=== PATIENT | female | born 1970 | race Caucasian/White ===

== ENCOUNTER 2016-09-27 10:27 | Outpatient (CLI) ==
[2012-09-24 22:51] VITALS: TEMP 97.4
[2015-12-29 18:05] VITALS: BMI 48.4
[2016-09-27 10:41] LABS: BASOPHILS # (AUTO) 0.1 K/uL (0-0.2); EOSINOPHILS # (AUTO) 0.1 K/ul (0.0-0.7); EOSINOPHILS % (AUTO) 1.8 % (0.0-7.0); HEMATOCRIT 40.6 % (37.0-47.0); HEMOGLOBIN 13.6 g/dl (12.0-16.0); IMMATURE GRANULOCYTE % (AUTO) 0.3 % (0.0-5.0); LYMPHOCYTES # (AUTO) 2.9 K/uL (0.60-3.4); LYMPHOCYTES % (AUTO) 46.8 (10.0-50.0); MEAN CORPUSCULAR HEMOGLOBIN 29.2 pg (27.0-31.0); MEAN CORPUSCULAR HGB CONC 33.5 (31.8-35.4); MEAN CORPUSCULAR VOLUME 87.3 fl (81.0-99.0); MONOCYTES # (AUTO) 0.6 K/uL (0.4-2.0); MONOCYTES % (AUTO) 9.2 (0-10); NEUTROPHILS # (AUTO) 2.5 K/ul (2.0-6.9); NEUTROPHILS % (AUTO) 40.9; PLATELET COUNT 253 10^3/uL (140-440); RED BLOOD COUNT 4.65 10^6/ul (4.20-5.40); WHITE BLOOD COUNT 6.09 K/ul (4.6-10.2)
[2016-09-27 11:22] LABS: ALBUMIN 3.8 g/dL (3.4-5.0); ALBUMIN/GLOBULIN RATIO 1.19; ANION GAP 12.3; BILIRUBIN,TOTAL 0.47 mg/dL (0.00-1.20); BUN/CREATININE RATIO 19.04; CALCIUM 9.3 mg/dL (8.2-10.2); CHOL/HDL RATIO 3.5 (4.5-5.5); CREATININE 0.84 mg/dL (0.60-1.30); FERRITIN 57.12 ng/mL (4.63-204.00); POTASSIUM 4.3 mmol/L (3.5-5.10)
== END 2016-09-27 10:28 | disposition home or self-care (01) ==
LOC: LAB 10:27
PROVIDERS: ATTEND Family Medicine
DX: E78.2 Mixed hyperlipidemia (principal); R53.83 Other fatigue; D68.9 Coagulation defect, unspecified
CPT/HCPCS: 36415; 80053; 80061; 82607; 82728; 83540; 84443; 85025

== ENCOUNTER 2016-10-22 08:51 | Outpatient (CLI) ==
[2012-09-24 22:51] VITALS: TEMP 97.4
[2015-12-29 18:05] VITALS: BMI 48.4
[2016-10-22 09:51] LABS: BILIRUBIN,URINE Negative (NEGATIVE); KETONES,URINE Negative (NEGATIVE); LEUKOCYTE ESTERASE ,URINE Trace (NEGATIVE); NITRITE,URINE Negative (NEGATIVE); PROTEIN,URINE Negative (NEGATIVE); URINE, BLOOD Negative (NEGATIVE)
[2016-10-22 09:58] LABS: ADD URINE MICROSCOPIC YES
[2016-10-22 10:00] LABS: BACTERIA,URINE TRACE (NOT PRESENT)
== END 2016-10-22 08:52 | disposition home or self-care (01) ==
LOC: LAB 08:51
PROVIDERS: ATTEND Family Medicine
DX: R30.0 Dysuria (principal)
CPT/HCPCS: 36415; 81001; 87086

== ENCOUNTER 2016-12-06 14:56 | Outpatient (CLI) ==
[2012-09-24 22:51] VITALS: TEMP 97.4
[2015-12-29 18:05] VITALS: BMI 48.4
== END 2016-12-06 14:57 | disposition home or self-care (01) ==
LOC: CAR 14:56
PROVIDERS: ATTEND Psychiatry & Neurology Sleep Medicine
DX: G47.33 Obstructive sleep apnea (adult) (pediatric) (principal)
CPT/HCPCS: 95811

== ENCOUNTER 2017-01-18 08:50 | Outpatient (CLI) ==
[2012-09-24 22:51] VITALS: TEMP 97.4
[2015-12-29 18:05] VITALS: BMI 48.4
--- NOTE | 2017-01-18 13:47 | MRI ---
EXAM: MRI of the left ankle/hind-foot without contrast COMPARISON: None available. HISTORY: Cystic lesion at the level of the left ankle. TECHNIQUE: Multiplanar noncontrast MR images of the left ankle/hind-foot were acquired using a 1.2 T esla magnet. FINDINGS: No recent radiographs of the left ankle are available for comparison and radiographic patito elation is recommended. There is subcutaneous edema and ill-defined subcutaneous fluid throughout the distal calf and ankle w hich is most pronounced medially. There is a gel capsule indicating the site of clinical concern wit hin the posteromedial aspect of the distal calf just above the tibiotalar joint at that level. There is a heterogeneous region of T2 hyperintense signal with lobulated margins measuring 1.8 x 1.1 x 0.8 cm within the posteromedial subcutaneous tissues at/just proximal to that level extending up to 3.8 c m above the level of the tibiotalar joint which may represent evolving hematoma/seroma/abscess though a soft tissue mass is not entirely excluded. Mild degenerative spurring at the tibiotalar, talonavicular and subtalar joints without evidence of a n acute fracture or osteomyelitis. The talar dome is intact. Small tibiotalar and posterior subtala r joint effusions with fluid extending to a prominent posterior joint recesses at those levels. There is marked tendinosis along the distal 5.2 cm of the Achilles tendon with linear intrasubstance fissuring/partial thickness tearing involving the distal 3.5 cm of the Achilles with more focal parti al-thickness/intrasubstance tear at the level of the insertional fibers measuring 3 mm in diameter. No full-thickness tear or tendon retraction. Achilles peritendinitis. 10 mm retrocalcaneal spur. 1 0 mm plantar calcaneal spur with inflammation. Scarring of the proximal portion of the plantar fasci a without fascial rupture. Diffuse muscle atrophy. The anterior tibial, extensor hallicus longus and extensor digitorum tendons are intact. Posterior t ibial tendinosis and tenosynovitis. The flexor digitorum and flexor hallicus longus tendons are inta ct. Mild peroneus longus/brevis tendinosis and tenosynovitis. The anterior and posterior tibiofibular ligaments are intact without abnormal widening of the syndesm osis. Scarring related to a chronic sprain of the anterior talofibular ligament with spurring of the fibular attachment. Sprains with scarring of the calcaneofibular, posterior talofibular and deltoid ligaments. IMPRESSION: 1. Subcutaneous edema and ill-defined subcutaneous fluid throughout the distal calf and ankle which i s most pronounced medially/posteromedially. More focal 1.8 x 1.1 x 0.8 cm T2 hyperintense focus with in the posteromedial subcutaneous tissues at the site of clinical concern just above the level of the ankle which may represent complex evolving hematoma/seroma/abscess or less likely a solid soft tissu e mass. Correlation with postcontrast MRI is recommended. 2. No acute osseous abnormality. Mild degenerative changes. Tibiotalar and subtalar joint effusion s, nonspecific. 3. Marked distal Achilles tendinosis with partial-thickness tear of the tendon without a full-thickn ess tear or tendon retraction as described. Achilles peritendinitis and enthesopathy. 4. Acute on chronic changes of plantar fasciitis without fascial rupture. 5. Mild posterior tibial tendinosis and tenosynovitis. Mild peroneus longus/brevis tendinosis and t enosynovitis. 6. Chronic sprains with scarring of the medial and lateral supporting ligaments of the ankle as desc ribed.
== END 2017-01-18 08:51 | disposition home or self-care (01) ==
LOC: RAD 08:50
PROVIDERS: ATTEND Family Medicine
DX: M67.472 Ganglion, left ankle and foot (principal)

== ENCOUNTER 2017-04-05 14:42 | Emergency (ER) ==
[2017-04-05 14:48] VITALS: BP 164/102; TEMP 97.8; BMI 53.9
--- NOTE | 2017-04-05 14:55 | ED.PDOC ---
General ED Provider: Dr. ADALBERTO PEREYRA JR Chief Complaint: Earache Stated Complaint: left ear pain. states is tender and sore and feels like it has a bump on the outside [ End ]1 day 97.8 59 20 97% 164/102 10 Time Seen by Physician: 14:53 Mode of Arrival: Walk-In Information Source: Patient Exam Limitations: No limitations Primary Care Provider: MOLLY JOHNSON Nursing and Triage Documentation Reviewed and Agree: No Reviewed sepsis parameters & appropriate labs ordered?: No System Inflammatory Response Syndrome: Not Applicable Sepsis Protocol: For patient's 13 years and over: Temp is 96.8 and below OR 101 and greater Pulse >90 BPM Resp >20/minute Acutely Altered Mental Status Are patient's symptoms suggestive of a new infection, such as: -Pneumonia -Skin, Soft Tissue -Endocarditis -UTI -Bone, Joint Infection -Implantable Device -Acute Abdominal Infection -Wound Infection -Meningitis -Blood Stream Catheter Infection -Unknown System Inflammatory Response Syndrome: Not Applicable Review of Systems - Review Of Systems Constitutional: Reports: No symptoms Eyes: Reports: No symptoms Ears, Nose, Mouth, Throat: Reports: Ear pain Respiratory: Reports: No symptoms Cardiac: Reports: No symptoms GI: Reports: No symptoms : Reports: No symptoms Musculoskeletal: Reports: No symptoms Skin: Reports: No symptoms Neurological: Reports: No symptoms Endocrine: Reports: No symptoms Hematologic/Lymphatic: Reports: No symptoms All Other Systems: Reviewed and Negative Past Medical History - Past Medical History Previously Healthy: Yes Endocrine: Reports: None Cardiovascular: Reports: None Respiratory: Reports: None Hematological: Reports: None Gastrointestinal: Reports: None Genitourinary: Reports: None Neuro/Psych: Reports: Anxiety Musculoskeletal: Reports: None Cancer: Reports: None Last Menstrual Period: none - Surgical History General Surgical History: Reports: Tubal ligation (tubal ligation,LEEP), Cholecystectomy, Adenoidectomy, Orthopedic (left shoulder surgury, bilat knee surgery), Unknown - Family History Family History: Reports: Unknown - Social History Smoking Status: Never smoker Hx Substance Use: No Alcohol Screening: None Physical Exam - Physical Exam Appearance: Well-appearing Pain Distress: Moderate Eyes: HENRY, EOMI, Conjunctiva clear ENT: Nose normal, Oropharynx normal, Erythema (each EAC slightly red and slight edema tender nonpalpable nodes ant and post to lef tear ear slight edema and erythema no definite cellulitis or otitis) Neck: Supple Respiratory: Airway patent, Breath sounds clear, Breath sounds equal, Respirations nonlabored Psychiatric: Affect appropriate, Mood appropriate Critical Care Note - Critical Care Note Total Time (mins): 0 Course - Course Vital Signs: Temp Pulse Resp BP Pulse Ox 04/05/17 14:42 97.8 F 59 L 20 164/102 H 97 Departure - Departure Time of Disposition: 15:03 Disposition: HOME SELF-CARE Discharge Problem: Otitis externa of left ear Qualifiers: Otitis externa type: diffuse Chronicity: acute Qualified Code(s): H60.312 - Diffuse otitis externa, left ear Instructions: Otitis Externa (ED) Condition: Good Pt referred to PMD for follow-up: Yes Additional Instructions: With Rocephin Keflex shoudl be unnecessary begin Keflex if symptoms not revolved 1-2 days if not improving recheck PMD for evaluation antibiotic until gone cortisporin ear drops for symptoms Prescriptions: Cephalexin [Keflex] 500 mg PO QID #28 capsule Neomycin/Polymyxin B/Hc Otic [Cortisporin Otic Susp] 4 drop OT Q6H #1 bottle Allergies/Adverse Reactions: Allergies meperidine [From Demerol] Adverse Reaction (Verified 04/05/17 14:47) Home Medications: Ambulatory Orders Tizanidine HCl [Zanaflex] 4 mg PO TID PRN 12/29/15 Lovastatin 40 mg PO DAILY 03/24/16 Aspirin [Aspirin EC] 325 mg PO DAILYWM 04/05/17 Cephalexin [Keflex] 500 mg PO QID #28 capsule 04/05/17 Clonazepam [Klonopin] 0.5 mg PO TID 04/05/17 Escitalopram Oxalate [Lexapro] 10 mg PO DAILY 04/05/17 Hydrocodone Bit/Acetaminophen [[place] 7.5-325] 1 each PO BID 04/05/17 Meloxicam [Mobic] 7.5 mg PO DAILYWM 04/05/17 Neomycin/Polymyxin B/Hc Otic [Cortisporin Otic Susp] 4 drop OT Q6H #1 bottle
[2017-04-05] MEDS ORDERED: ROCEPHIN IM STA (15:07)
[2017-04-05] MEDS ORDERED: LIDOCAINE HCL 1% SDV SUBCUT STA (15:07)
== END 2017-04-05 15:38 | disposition home or self-care (01) ==
LOC: ED 14:42
DX: H60.312 Diffuse otitis externa, left ear (principal)
CPT/HCPCS: 96372; 99282

== ENCOUNTER 2017-05-09 08:42 | Outpatient (CLI) ==
[2012-09-24 22:51] VITALS: TEMP 97.4
== END 2017-05-09 08:43 | disposition home or self-care (01) ==
LOC: LAB 08:42
PROVIDERS: ATTEND Family Medicine
DX: E78.5 Hyperlipidemia, unspecified (principal); E53.8 Deficiency of other specified B group vitamins
CPT/HCPCS: 36415; 80053; 80061; 82607; 84443; 85025

== ENCOUNTER 2017-05-24 15:36 | Emergency (ER) ==
[2017-05-24 15:44] VITALS: BP 117/83; TEMP 98.3; BMI 52.4
--- NOTE | 2017-05-24 17:43 | ED.PDOC ---
General ED Provider: Dr. MOLLY RAMOS Chief Complaint: Diarrhea Stated Complaint: GI illness. Diarrhea multiple episodes since yesterday. Respiratory congestion last week. Fever and chills Tuesday. Denies N-V. Sent her by her PCP. Denies Respiratory symptoms. Time Seen by Physician: 17:15 Mode of Arrival: Walk-In Information Source: Patient Exam Limitations: No limitations Primary Care Provider: MOLLY JOHNSON Referred to ED by: PCP Nursing and Triage Documentation Reviewed and Agree: Yes Reviewed sepsis parameters & appropriate labs ordered?: Yes System Inflammatory Response Syndrome: Not Applicable Sepsis Protocol: For patient's 13 years and over: Temp is 96.8 and below OR 101 and greater Pulse >90 BPM Resp >20/minute Acutely Altered Mental Status Are patient's symptoms suggestive of a new infection, such as: -Pneumonia -Skin, Soft Tissue -Endocarditis -UTI -Bone, Joint Infection -Implantable Device -Acute Abdominal Infection -Wound Infection -Meningitis -Blood Stream Catheter Infection -Unknown System Inflammatory Response Syndrome: Not Applicable GI Complaint Exam - Vomiting/Diarrhea Complaint/Exam Symptoms Are: Resolved Initial Severity: Moderate Current Severity: Mild Character of Diarrhea: Reports: Watery Aggravating: Reports: None Alleviating: Reports: None Associated Signs and Symptoms: Reports: Abdominal pain, Cramping. Denies: Dizziness, Light-headedness, Melena, Hematemesis, Fever Related History: Denies: Similar episode, Recent antibiotics Last Oral Intake: ealier today Last Bowel Movement: early today Non-GI Risk Factors: Reports: None Surgical Obstruction Risk Factors: Reports: None Related Surgical History: Reports: None Abdominal Findings: Present: None Review of Systems - Review Of Systems Constitutional: Reports: Weakness Eyes: Reports: No symptoms Ears, Nose, Mouth, Throat: Reports: No symptoms Respiratory: Reports: Other (congestion ) Cardiac: Reports: No symptoms GI: Reports: Diarrhea : Reports: No symptoms Musculoskeletal: Reports: No symptoms Skin: Reports: No symptoms Neurological: Reports: No symptoms Endocrine: Reports: No symptoms Hematologic/Lymphatic: Reports: No symptoms All Other Systems: Reviewed and Negative Past Medical History - Past Medical History Previously Healthy: Yes Endocrine: Reports: None Cardiovascular: Reports: None Respiratory: Reports: None Hematological: Reports: None Gastrointestinal: Reports: None Genitourinary: Reports: None Neuro/Psych: Reports: Anxiety Musculoskeletal: Reports: None Cancer: Reports: None Last Menstrual Period: na - Surgical History General Surgical History: Reports: Tubal ligation (tubal ligation,LEEP), Cholecystectomy, Adenoidectomy, Orthopedic (left shoulder surgury, bilat knee surgery), Unknown - Family History Family History: Reports: Unknown - Social History Smoking Status: Never smoker Hx Substance Use: No Alcohol Screening: None - Immunizations Tetanus Shot up to Date: Yes Physical Exam - Physical Exam Appearance: Well-appearing Ill-appearing: None Pain Distress: None Eyes: HENRY, EOMI, Conjunctiva clear ENT: Ears normal, Nose normal, Oropharynx normal Neck: Supple Respiratory: Airway patent, Breath sounds clear, Breath sounds equal Cardiovascular: RRR, Pulses normal, No rub, No murmur GI/: Soft, Tender (Hypogastrium midline without guarding or rebound) Musculoskeletal: Normal strength Skin: Warm Neurological: Sensation intact, Alert, Oriented Psychiatric: Affect appropriate, Mood appropriate Interpretation - Radiology Interpretation Radiology Interpretation By: ED Physician Radiology Results: Negative Re-Evaluation - Re-Evaluation Time of Re-Evaluation: 19:00 Status: Improved Vital Signs Stable: Yes Appearance: NAD Lungs: Clear Skin: Warm and Dry Neuro: Alert and Oriented X3 CV: RRR Additional Comments: Recommend Maintaining good fluid intake, Finish Tamiflu daily until finishd Critical Care Note - Critical Care Note Total Time (mins): 0 Course - Course Hematology/Chemistry: 05/24/17 17:55 05/24/17 17:55 Orders, Labs, Meds: Lab Review 05/24/17 05/24/17 05/24/17 17:45 17:55 17:55 WBC 7.97 RBC 4.70 Hgb 13.9 Hct 40.8 MCV 86.8 MCH 29.6 MCHC 34.1 RDW Coeff of Duy 11.9 Plt Count 259 Immature Gran % (Auto) 0.3 Neut % (Auto) 43.1 Lymph % (Auto) 42.7 Cuming % (Auto) 11.5 H Eos % (Auto) 1.9 Baso % (Auto) 0.5 Immature Gran # (Auto) 0.0 Neut # 3.4 Lymph # 3.4 Cuming # 0.9 Eos # 0.2 Baso # 0.0 Sodium 143 Potassium 4.3 Chloride 107 Carbon Dioxide 29 Anion Gap 11.3 BUN 13 Creatinine 0.79 Estimated GFR (MDRD) 78.00 BUN/Creatinine Ratio 16.45 Glucose 104 Calcium 9.7 Total Bilirubin 0.4 AST 18 ALT 21 Alkaline Phosphatase 61 Total Protein 7.1 Albumin 3.7 Globulin 3.4 Albumin/Globulin Ratio 1.09 Lipase 25 Influenza A (Rapid) Negative by naat Influenza B (Rapid) Negative by naat Orders Category Date Time Status CBC W/ AUTO DIFF Stat LAB 05/24/17 17:55 Completed CMP [COMPREHENSIVE METABOLIC PANEL] Stat LAB 05/24/17 17:55 Completed FLU A & B MOLECULAR [FLU A/B MOLECULAR] Stat LAB 05/24/17 17:45 Completed LIPASE Stat LAB 05/24/17 17:55 Completed Vital Signs: Temp Pulse Resp BP Pulse Ox 05/24/17 15:37 98.3 F 70 20 117/83 98 Departure - Departure Time of Disposition: 19:30 Disposition: HOME SELF-CARE Discharge Problem: Gastroenteritis Instructions: Gastroenteritis (ED) Condition: Good Pt referred to PMD for follow-up: Yes IPMP verified?: No Allergies/Adverse Reactions: Allergies meperidine [From Demerol] Adverse Reaction (Verified 04/05/17 14:47) Home Medications: Ambulatory Orders Lovastatin 40 mg PO DAILY 03/24/16 Aspirin [Aspirin EC] 325 mg PO DAILYWM 04/05/17 Clonazepam [Klonopin] 0.5 mg PO TID 04/05/17 Escitalopram Oxalate [Lexapro] 10 mg PO DAILY 04/05/17 Hydrocodone Bit/Acetaminophen [[place] 7.5-325] 1 each PO BID 04/05/17 Meloxicam [Mobic] 7.5 mg PO DAILYWM 04/05/17 Meloxicam [Mobic] 7.5 mg PO DAILY 04/13/17 Ranitidine HCl 150 mg PO BID PRN 04/13/17 Disposition Discussed With: Patient (Stay well hydrated. Finish Tamiflu;follow up pcp in 1 wk)
== END 2017-05-24 20:13 | disposition home or self-care (01) ==
LOC: ED 15:36
DX: K52.9 Noninfective gastroenteritis and colitis, unspecified (principal)
CPT/HCPCS: 36415; 80053; 83690; 85025; 87502; 99283

== ENCOUNTER 2018-02-27 08:45 | Outpatient (CLI) ==
[2012-09-24 22:51] VITALS: TEMP 97.4
== END 2018-02-27 08:46 | disposition home or self-care (01) ==
LOC: LAB 08:45
PROVIDERS: ATTEND Hospitalist
DX: E78.2 Mixed hyperlipidemia (principal); K21.9 Gastro-esophageal reflux disease without esophagitis
CPT/HCPCS: 36415; 80053; 80061; 85025

== ENCOUNTER 2018-05-07 01:30 | Outpatient (CLI) ==
[2012-09-24 22:51] VITALS: TEMP 97.4
[2018-05-07 02:11] VITALS: BMI 53.1
== END 2018-05-07 01:31 | disposition home or self-care (01) ==
LOC: AMBL 01:30
PROVIDERS: ATTEND Emergency Medicine
DX: I46.9 Cardiac arrest, cause unspecified (principal)

== ENCOUNTER 2018-05-07 01:39 | Emergency (ER) ==
[2018-05-07 02:11] VITALS: BP 0/0; TEMP 94; BMI 53.1
--- NOTE | 2018-05-07 02:52 | ED.PDOC ---
General ED Provider: Dr. MOLLY YOUNG Chief Complaint: Cardiac Arrest Stated Complaint: Cardiac Arrest. 48 y/o cauc female brought in by EMS from her residence. reportedly awakened and found her not breathing at approximately 1:30 AM. Called 911 and attempted CPR in Bed until they arrived. Once [facility] /[facility] responded and started CPR at 0133hrs. Pupils were noted to be fixed and dilated. Once put on the AED, was in asystole without a shockable rhythm. Once paramedics arrived on scene definitive medical therapy administerd per ACLS protocol including Narcan, Epinephrine X 4, Bicarb X 1. Upon arrival here CPR Continued, patient was intubated. Additional Epinephrine, Bicarb and Narcan administered. Despite all therapy we did not obtain Return of spontaneorus Respiration or cardiac activity. Patient pronounced at 0217 hrs. Her was in the Room during the attempts of resusciation and informed him and of our treatment and when she was pronounced. Stated they had went to bed at 2230 hrs and she took an oxycodone before bed. At one point he awakened and noted she was snoring and nudged her to roll over which she did. Time Seen by Physician: 02:01 Mode of Arrival: Ambulance Information Source: EMT, Police Primary Care Provider: MOLLY JOHNSON Nursing and Triage Documentation Reviewed and Agree: Yes Does patient meet sepsis criteria?: No System Inflammatory Response Syndrome: Not Applicable Sepsis Protocol: For patient's 13 years and over: Temp is 96.8 and below OR 101 and greater Pulse >90 BPM Resp >20/minute Acutely Altered Mental Status Are patient's symptoms suggestive of a new infection, such as: -Pneumonia -Skin, Soft Tissue -Endocarditis -UTI -Bone, Joint Infection -Implantable Device -Acute Abdominal Infection -Wound Infection -Meningitis -Blood Stream Catheter Infection -Unknown Cardiac Resuscitation - Cardiac Resuscitation/Physical Exam Onset/Duration: Prior to arrival Witnessed Arrest: No (Was found in cardiac arrest in bed by .) Down-time Before ALS Initiated: Unknown Airway Prehospital Findings: Reports: Patent Breathing Prehospital Findings: Reports: Apnea Circulation/Rhythm Prehospital Findings: Reports: Pulses absent, Asystole Disability/Neurological Prehospital Findings: Reports: Unresponsive Airway Prehospital Intervention: Reports: Chin lift, Oral airway Breathing Prehospital Intervention: Reports: Oxygen, Bag-valve mask Circulation/Rhythm Prehospital Intervention: Reports: Chest compressions, IV/IO placed, Epinephrine Breathing Prehospital Response: Present: Equal breath sounds Circulation/Rhythm Prehospital Response: Present: Pulses absent, Asystole Total Down Time [employer] ADVISOR: 30 minutes Airway ED Findings: Patent Breathing ED Findings: Present: Breath sounds equal Circulation/Rhythm ED Findings: Present: Pulses absent, Asystole Disability/Neurological ED Findings: Present: Unresponsive Breathing ED Intervention: Oxygen, Bag-valve mask, Intubated by ED physician Circulation/Rhythm ED Intervention: Chest compressions, Epinephrine Breathing ED Response: Equal breath sounds, Confirmed by auscultation, Confirmed by CO2 detector Circulation/Rhythm ED Response: Present: Pulses absent, Asystole Right Pupil: Fixed, Dilated Left Pupil: Fixed, Dilated Review Of Systems: Unable due to extremis EMS/Code Sheet Reviewed: Yes Patient is a DNR: No Resuscitation Successful: No Terminated At: 0217 Past Medical History - Past Medical History Previously Healthy: Yes Endocrine: Reports: None Cardiovascular: Reports: None Respiratory: Reports: PE Hematological: Reports: None Gastrointestinal: Reports: None Genitourinary: Reports: None Neuro/Psych: Reports: Anxiety Musculoskeletal: Reports: None Cancer: Reports: None Last Menstrual Period: HYSTERECTOMY - Surgical History General Surgical History: Reports: Tubal ligation (tubal ligation,LEEP), Cholecystectomy, Adenoidectomy, Orthopedic (left shoulder surgury, bilat knee surgery), Unknown - Family History Family History: Reports: Unknown - Social History Smoking Status: Never smoker Hx Substance Use: No Alcohol Screening: None - Immunizations Tetanus Shot up to Date: No (UNKNOWN) Procedures - Intubation Indication: Present: Respiratory Insufficiency Time of Intubation: 02:08 Type of Tube Used: Endotracheal Tube Size: 7.0 Cricoid Pressure Used: Yes Number of Attempts: 1 Suction Used: No Glidescope Used: No CO2 Detector Used: Yes Lung Sounds Equal Bilaterally: Yes Intubation Complications: Present: No complications Tube Inserted By: Dr Ginger Young Tube Placement Verified by X-ray: No Re-Evaluation - Re-Evaluation Time of Re-Evaluation: 02:17 Status: Unchanged CV: Other (Cardiad arrest) Critical Care Note - Critical Care Note Total Time (mins): 15 Course - Course Orders, Labs, Meds: Orders Category Date Time Status Epinephrine [Epinephrine 1 mg/10 ml Syringe] MEDS 05/07/18 03:30 Discontinued 1 mg IV ONCE STA Epinephrine [Epinephrine 1 mg/10 ml Syringe] MEDS 05/07/18 03:31 Discontinued 1 mg IV ONCE STA Epinephrine [Epinephrine 1 mg/10 ml Syringe] MEDS 05/07/18 03:32 Discontinued 1 mg IV ONCE STA Naloxone HCl [Narcan] MEDS 05/07/18 03:30 Discontinued 2 mg IVP ONCE STA Sodium Bicarb 7.5% [Sodium Bicarbonate 7.5%] MEDS 05/07/18 03:32 Discontinued 44.6 meq IVP ONCE STA Medications Discontinued Medications Generic Name Dose Route Start Last Admin Trade Name Artie PRN Reason Stop Dose Admin Epinephrine HCl 1 mg 05/07/18 03:30 05/07/18 02:06 Epinephrine 1 Mg/10 Ml Syringe IV 05/07/18 03:31 1 mg ONCE STA Administration Epinephrine HCl 1 mg 05/07/18 03:31 05/07/18 02:10 Epinephrine 1 Mg/10 Ml Syringe IV 05/07/18 03:32 1 mg ONCE STA Administration Epinephrine HCl 1 mg 05/07/18 03:32 05/07/18 02:13 Epinephrine 1 Mg/10 Ml Syringe IV 05/07/18 03:33 1 mg ONCE STA Administration Naloxone HCl 2 mg 05/07/18 03:30 05/07/18 02:07 Narcan IVP 05/07/18 03:31 2 mg ONCE STA Administration Sodium Bicarbonate 44.6 meq 05/07/18 03:32 05/07/18 02:11 Sodium Bicarbonate 7.5% IVP 05/07/18 03:33 44.6 meq ONCE STA Administration Vital Signs: Temp Pulse Resp BP Pulse Ox 05/07/18 03:21 0 L 0 L 0/0 L 05/07/18 02:02 94 F L 0 L 0 L 0/0 L 0 L Departure - Departure Time of Disposition: 03:00 Disposition: Discharge Problem: Sudden cardiac due to cardiac arrhythmia Condition: Pt referred to PMD for follow-up: No IPMP verified?: No Additional Instructions: [employer] Sales Representative and [facility] contacted by Eric RIVAS RN Allergies/Adverse Reactions: Allergies meperidine [From Demerol] Adverse Reaction (Verified 04/05/17 14:47) Home Medications: Ambulatory Orders Lovastatin 40 mg PO DAILY 03/24/16 Aspirin [Aspirin EC] 325 mg PO DAILYWM 04/05/17 Clonazepam [Klonopin] 0.5 mg PO TID 04/05/17 Escitalopram Oxalate [Lexapro] 10 mg PO DAILY 04/05/17 Hydrocodone Bit/Acetaminophen [[place] 7.5-325] 1 each PO BID 04/05/17 Meloxicam [Mobic] 7.5 mg PO DAILYWM 04/05/17 Meloxicam [Mobic] 7.5 mg PO DAILY 04/13/17 Ranitidine HCl 150 mg PO BID PRN 04/13/17
[2018-05-07] MEDS ORDERED: NARCAN IVP STA (03:30)
[2018-05-07] MEDS ORDERED: EPINEPHRINE 1 MG/10 ML SYRINGE IV STA ×3 (03:30→03:32)
[2018-05-07] MEDS ORDERED: SODIUM BICARBONATE 7.5% IVP STA (03:32)
== END 2018-05-07 05:30 | disposition expired ==
LOC: ED 01:39
DX: I46.9 Cardiac arrest, cause unspecified (principal)
CPT/HCPCS: 31500; 96361; 96374; 96375; 96376; 99291